=== PATIENT | female | born 1990 | race Asian ===

== ENCOUNTER 2020-09-01 06:23 | Day surgery (SDC) | payer OTHER, SELFPAY ==
[~2020-09-01] VITALS: Ht 160 cm; Wt 63.5 kg
[2020-09-01] MEDS ORDERED: diphenhydrAMINE 50 MG/ML VIAL ONE (07:55)
[2020-09-01] MEDS ORDERED: MIDAZOLAM 5 MG/5 ML VIAL ONE (07:55)
[2020-09-01] MEDS ORDERED: fentaNYL citrate 0.05 MG/ML VIAL ONE (07:55)
[2020-09-01] MEDS: MIDAZOLAM 2 MG/2 ML VIAL IVP ONE (07:57)
[2020-09-01] MEDS: fentaNYL citrate 0.05 MG/ML VIAL IVP ONE (07:58)
== END 2020-09-01 08:50 | disposition home or self-care (01) ==
LOC: MDS 06:23 → MMU 06:30 → MDS 08:50
PROVIDERS: ATTEND Internal Medicine Gastroenterology
DX: K21.9 Gastro-esophageal reflux disease without esophagitis (principal); K31.89 Other diseases of stomach and duodenum; K59.00 Constipation, unspecified; Z79.899 Other long term (current) drug therapy; Z20.828 Contact with and (suspected) exposure to other viral communicable diseases
CPT/HCPCS: 81025; 88305; 88312; 88313; J1200; J2250; J3010; U0003